=== PATIENT | female | born 2000 | race Caucasian/White ===

== ENCOUNTER 2022-07-13 15:58 | Emergency (ER) | payer OTHER, BC, SELFPAY ==
--- NOTE | ~2022-07-13 | XR_ITS ---
EXAMINATION: XR shoulder LT min 2V INDICATION: Left shoulder pain TECHNIQUE: Four views of the left shoulder are submitted. COMPARISON: None FINDINGS: Normal alignment. No fracture. Glenohumeral and acromioclavicular joint spaces are normal. Soft tissues are unremarkable. IMPRESSION: 1. No acute osseous abnormality. Reviewed, dictated and finalized at location F.
--- NOTE | ~2022-07-13 | CT_ITS ---
EXAMINATION: CT brain wo con INDICATION: Headache COMPARISON: None TECHNIQUE: Standard unenhanced head CT. The dose-length product (DLP) was 605.33 mGy-cm. The mA was a djusted according to patient size. Iterative reconstruction technique was employed. FINDINGS: There is no intracranial hemorrhage, acute infarction, or abnormal mass lesion. The ventric les are normal. There is no abnormal mass effect or midline shift. The serna-white matter differentiat ion is normal. The basal cisterns are patent. The orbits are normal. The paranasal sinuses, mastoids and calvarium are normal. IMPRESSION: 1. No acute intracranial abnormality. Reviewed, dictated and finalized at location F.
--- NOTE | ~2022-07-13 | XR_ITS ---
EXAMINATION: XR chest 2V DATE: 07/13/2022 19:57 INDICATION: Chest pain TECHNIQUE: PA and lateral views of the chest are obtained. COMPARISON: None available FINDINGS: The lungs are free of acute opacities. No pleural effusion or pneumothorax. The cardiomedia stinal silhouette is normal. The visualized bones and soft tissues are unremarkable. IMPRESSION: 1. No acute cardiopulmonary abnormality. Reviewed, dictated and finalized at location F.
[2022-07-13 16:02] VITALS: BP 118/72; PULSE 82; RESP 16; TEMP 36.3; O2SAT 99
[2022-07-13 19:29] VITALS: BP 126/90; PULSE 56; RESP 16; O2SAT 98
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
[2022-07-13] MEDS: IBUPROFEN 600 MG TABLET PO (19:38)
[2022-07-13 20:16] VITALS: BP 122/68; PULSE 66; RESP 18; O2SAT 99
== END 2022-07-13 20:38 | disposition home or self-care (01) ==
LOC: ANHED 20:20
PROVIDERS: Emergency Provider Emergency Medicine
DX: S00.93XA Contusion of unspecified part of head, initial encounter (principal); S40.012A Contusion of left shoulder, initial encounter; V43.52XA Car driver injured in collision with other type car in traffic accident, initial encounter
CPT/HCPCS: 70450; 71046; 73030; 99284; A9270